=== PATIENT | female | born 1995 ===

== ENCOUNTER 2024-03-12 11:19 | Emergency (ER) | payer OTHER, SELFPAY ==
[2024-03-12 11:28] VITALS: BP 150/108; PULSE 58; RESP 20; TEMP 36.2; O2SAT 100
== END 2024-03-12 13:05 | disposition left against medical advice (07) ==
LOC: ANHED 12:59
PROVIDERS: Emergency Provider Emergency Medicine
DX: T22.00XA Burn of unspecified degree of shoulder and upper limb, except wrist and hand, unspecified site, initial encounter (principal)
CPT/HCPCS: 99199

== ENCOUNTER 2024-03-12 13:10 | Emergency (ER) | payer OTHER, SELFPAY ==
[2024-03-12 13:14] VITALS: BP 167/101; PULSE 64; RESP 14; TEMP 36.3; O2SAT 100
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
[2024-03-12 16:05] VITALS: BP 148/91; PULSE 66; RESP 18; TEMP 36.6; O2SAT 100
[2024-03-12] MEDS: TETANUS,DIPHTHERIA,AC PERTUSSIS ADULT (0.5 ML) BOOSTRIX IM (16:05)
[2024-03-12] MEDS: SILVER SULFADIAZINE 1% CR 50 GM JAR (*BKC) 1 APPLIC TOPICAL (16:06)
== END 2024-03-12 16:08 | disposition home or self-care (01) ==
LOC: ANHED 14:14
PROVIDERS: Emergency Provider Physician Assistant
DX: T22.111A Burn of first degree of right forearm, initial encounter (principal); T31.0 Burns involving less than 10% of body surface; Z23 Encounter for immunization; X19.XXXA Contact with other heat and hot substances, initial encounter; Y93.G1 Activity, food preparation and clean up
CPT/HCPCS: 16000; 90471; 90715; 99283; A9270

== ENCOUNTER 2024-06-01 13:29 | Emergency (ER) | payer OTHER, SELFPAY ==
--- OUTSIDE RECORDS SUMMARY | 2024-06-01 13:31 | XMS_ITS | Encounter Summary ---
Author Organization [facility] - [facility] Address [address] [place] [address] [place] [address] Care Team Providers Care Project Coach Name Role Phone None, Provider MD Primary Care Provider Unavaila ble None, Provider Primary Care Provider Unavaila ble None, Provider Unavailable Unavailable Chandrakant Maciel MD Unavailable Encounter Details Date Type Department Care Team (Late st Contact Info) Description 03/20/2019 Hospital Follow-up Call [facility] [place] [address] January Rodriges, RN Social History Tobacco Use Types Packs/Day Years Used Date Smoking Tobacco: Every Day Cigarettes 0.3 2 Smokeless Tobacco: Never Alcohol Use Standard Drinks/Week Comments No 0 (1 standard drink = 0.6 oz pur e alcohol) Humiliation, Afraid, Rape, and Kick questionnair e Answer Date Recorded Fear of Current or Ex-Partner No Emotionally Abused No 03/18/2019 Physically Abused No 03/18/2019 Sexually Abused No 03/18/2019 AUDIT-C Answer Date Recorded Frequency of Alcohol Consumption Never 03/17/2019 Average Number of Drinks Not on file 019 Frequency of Binge Drinking Not on file 02/28 Comments No Sex and Gender Information Value Date Recorded Sex Assigned at Female 09/15/2020 3:27 PM CDT Legal Sex Female 8:22 PM CDT Gender Identity Female 09/15/2020 3:27 PM CDT Sexual Orientation Straight 09/15/2020 3: 27 PM CDT documented as of this encounter Functional Status * RETIRED Are you deaf or do you have serious difficulty hearing Answer Date of Assessment Author Status No 03/18/2019 4:31 PM PERSONAL DRIVER Activ e * RETIRED Are you blind or do you have serious difficulty seeing, even when wearing glasses? Answer Date of Assessment Author Status No 03/18/2019 4:31 PM PERSONAL DRIVER Activ e * Do you have serious difficulty walking or climbing stairs? Answer Date of Assessment Author Status No 03/18/2019 4:31 PM PERSONAL DRIVER Norma Haney, R Korin Active * Do you have difficulty dressing or bathing? Answer Date of Assessment Author Status No 03/18/2019 4:31 PM PERSONAL DRIVER Norma Haney, R Korin Active * Because of a physical, mental, or emotional condition, do you have difficulty doing errands alone such as visiting a doctor's office or shopping? Answer Date of Assessment Author Status No 03/18/2019 4:31 PM PERSONAL DRIVER Norma Haney, R N Active documented as of this encounter Mental Status * Because of a physical, mental, or emotional condition, do you have serious difficulty concentrating, remembering, or making decisions? Answer Entry Date Author Status No 03/18/2019 4:31 PM PERSONAL DRIVER Norma Haney, R N Active documented in this encounter Plan of Treatment Not on file documented as of this encounter Visit Diagnoses Not on filedocumented in this encounter Additional Health Concerns Infection Onset Date Last Indicated Resolved Time COVID-19 Rule Out 11/28/2020 11/28/2020 11/29/2020 10:55 PM CDT COVID-19 Confirmed 11/28/2020 11/28/2020 12:32 AM CDT documented as of this encounter Care Teams Project Coach Relationship Specialty Start Date End Date None, ProviderMD PCP - General 03/17/19 01/18/21 None, ProviderMD PCP - General 01/19/21 None, MD Wilner 01/19/21 Chandrakant Maciel MD [address] [place] [address] OBGYN 03/18/17 documented as of this encounter
--- OUTSIDE RECORDS SUMMARY | 2024-06-01 13:31 | XMS_ITS | Clinical Summary ---
Author Organization [facility] Address [facility] [facility] [address] [place] [address] Care Team Providers Care Branch Service Representative Name Role Phone None, Provider MD Primary Care Provider Unavaila ble None, Provider MD Unavailable Unavailable Chandrakant Maciel MD Unavailable Allergies No known active allergies Medications No known medications Active Problems Problem Noted Date Diagnosed Date Intentional acetaminophen overdose ([facility]) 09/15/2020 Intentional overdose of drug in tablet form ([facility]) 09/15/2020 Pre-eclampsia in period ([facility]) Upper GI bleed 03/17/2019 Class 2 obesity due to exces s calories with body mass index (BMI) of 36.0 to 36.9 in adult 01/08/2019 Twin , twins discordant, antepartum ([facility]) 01/08/2019 Overview (09/15/2020): Noted on outside scan Chlamydia infection affectin g in first trimester ([facility]) 07/29/2018 Overview (09/15/2020): abx sent to pt pharmacy 07/29/18, need LEN in 6 weeks Dichorionic diamniotic twin ([facility]) 07/29/2018 Overview (09/15/2020): [x] FOB name: Mother: Farida First Trimester: [] Dating Criteria: [x] Labs:O+/I/-/-. HIV NR [x] Genetic Screening: Panorama LR, Dizygotic fraternal twins, female/male, pt notified 2nd Trimester: [x] Anatomy ultrasound 3rd Trimester: [x] CBC, HIV, syphilis screen [x] 1hr GCT (26-28wks): [] Tdap (27-36wks) [] Rhogam (if Rh neg): [] GBS: Counseling: [] Method of delivery: [] Method of contraception: undecided [] Method of feeding: undecided Burgess's palsy Family History Medical History Relation Comments Hypertension Father Liver Disease Maternal Grandmother Lupus Mother Relation Status Comments Father Maternal Grandmother Mother Social History Tobacco Use Types Packs/Day Years Used Date Smoking Tobacco: Every Day Cigarettes 0.5 2 Smokeless Tobacco: Never Tobacco Cessation:Ready to Q uit: No; Counseling Given: Yes Alcohol Use Standard Drinks/Week Comments Not Currently 0 (1 standard drink = 0.6 oz [...] Orientation Straight 09/15/2020 3: 27 PM CDT Last Filed Vital Signs Vital Sign Reading Time Taken Comments Blood Pressure 136/79 01/19/2021 1:18 PM CDT Pulse 57 01/19/2021 1:18 PM CDT Temperature 36.6 ??C (97.8 ??F) 01/19/2021 1 0:47 AM CDT Respiratory Rate 18 01/19/2021 1:18 PM CDT Oxygen Saturation 100% 01/19/2021 1:18 PM CDT Inhaled Oxygen Concentration - - Weight 94.8 kg (208 lb 15.9 oz) 021 10:47 AM CDT Height 162.6 cm (5' 4 ) 01/19/2021 10:4 7 AM CDT Body Mass Index 35.87 01/19/2021 10:47 AM CDT Plan of Treatment Health Maintenance Due Date Last Done Comments Cervical Cancer Screening Pap Smear (Age 30 to 64) Every 3 Years 1993 Annual Physical 1996 Pneumococcal Vaccine: Pediatrics (0 to 5 Years) and At-Risk Patients (6 to 64 Years) (1 of 2 - PCV) 1999 Hepatitis C 2011 Hepatitis B Vaccines (1 of 3 - 19+ 3-dose series) 2012 Cervical Cancer Screening Pap with HPV Testing (Age 30 to 64) Every 5 Years 2023 Cervical Cancer Screening with HPV 2023 COVID-19 Vaccine ( season) 2023 Influenza Adult (#1) 2024 DTaP, Tdap and Td Vaccines (4 - Td or Tdap) 01/10/2029 01/10/2019, 12/08/1998, 03/20/1996, Additional history exists HPV Vaccines Aged Out No longer eligi ble based on patient's age to complete this topic Meningococcal B Vaccine Aged Out No l onger eligible based on patient's age to complete this topic Meningococcal Vaccine Aged Out No ladan luisito eligible based on patient's age to complete this topic RSV Immunizations Under 20 Months Aged Out No longer eligible based on patient's age to complete this topic Insurance AETNA AETNA MED[employer]MENTS OF [facility] Advance Directives * Full Code (Latest Code Status on File) Date Activated Date Inactivated Comments 09/15/2020 10:37 PM 09/16/2020 2:40 PM * Full Code Date Activated Date Inactivated Comments 03/17/2019 11:20 PM 03/19/2019 5:11 PM Care Teams Branch Service Representative Relationship Specialty Start Date End Date None, Provider, PCP - General 01/19/21 None, ProviderMD 01/19/21 Chandrakant Maciel MD [address] [address] OBGYN 03/18/17
[2024-06-01 13:40] VITALS: BP 138/81; PULSE 74; RESP 17; TEMP 36.7; O2SAT 100
--- NOTE | 2024-06-01 14:30 | PC.NURSE ---
pt told this RN she had to go back to work and would like a call when it was her turn. this RN told pt that is not how it works and if her name was called and she was not here then her name would get skipped over and we are not eligible to give her a call. pt was not happy about this saying she works here and would like a phone call. This RN informed her again that we do not call when a room becomes available. pt stormed off and said this hospital is terrible and left
--- OUTSIDE RECORDS SUMMARY | 2024-06-01 14:41 | XMS_ITS | Clinical Summary ---
Author Organization [facility] Address [facility] [facility] [place] [address] [place] [address] Care Team Providers Care Insecticide Expert Name Role Phone None, Provider MD Primary Care Provider Unavaila ble None, Provider MD Unavailable Unavailable Chandrakant Maciel MD Unavailable Allergies No known active allergies Medications No known medications Active Problems Problem Noted Date Diagnosed Date Intentional acetaminophen overdose ([facility]) 09/15/2020 Intentional overdose of drug in tablet form ([facility]) 09/15/2020 Pre-eclampsia in period ([facility]) Upper GI bleed 03/17/2019 Class 2 obesity due to exces s calories with body mass index (BMI) of 36.0 to 36.9 in adult 01/08/2019 Twin , twins discordant, antepartum ([facility]) 01/08/2019 Overview (09/15/2020): Noted on outside scan Chlamydia infection affectin g in first trimester ([facility]) 07/29/2018 Overview (09/15/2020): abx sent to pt pharmacy 07/29/18, need LEN in 6 weeks Dichorionic diamniotic twin ([facility]) 07/29/2018 Overview (09/15/2020): [x] FOB name: [...] topic Insurance AETNA AETNA [facility]MENTS OF [facility] Advance Directives * Full Code (Latest Code Status on File) Date Activated Date Inactivated Comments 09/15/2020 10:37 PM 09/16/2020 2:40 PM * Full Code Date Activated Date Inactivated Comments 03/17/2019 11:20 PM 03/19/2019 5:11 PM Care Teams Insecticide Expert Relationship Specialty Start Date End Date None, Provider, PCP - General 01/19/21 None, ProviderMD 01/19/21 Chandrakant Maciel MD [address] [place] [address] OBGYN 03/18/17
--- OUTSIDE RECORDS SUMMARY | 2024-06-01 14:41 | XMS_ITS | Encounter Summary ---
Author Organization [facility] - [facility] Address [address] [place] [address] [place] [address] Care Team Providers Care Thread Puller Name Role Phone None, Provider MD Primary Care Provider Unavaila ble None, Provider Primary Care Provider Unavaila ble None, Provider Unavailable Unavailable Chandrakant Maciel MD Unavailable Encounter Details Date Type Department Care Team (Late st Contact Info) Description 03/20/2019 Hospital Follow-up Call [facility] [place] [address] January Rodriges, RN Social History [...] Assessment Author Status No 03/18/2019 4:31 PM ICE HOUSE SUPERVISOR Activ e * RETIRED Are you blind or do you have serious difficulty seeing, even when wearing glasses? Answer Date of Assessment Author Status No 03/18/2019 4:31 PM ICE HOUSE SUPERVISOR Activ e * Do you have serious difficulty walking or climbing stairs? Answer Date of Assessment Author Status No 03/18/2019 4:31 PM ICE HOUSE SUPERVISOR Norma Haney, R Korin Active * Do you have difficulty dressing or bathing? Answer Date of Assessment Author Status No 03/18/2019 4:31 PM ICE HOUSE SUPERVISOR Norma Haney, R Korin Active * Because of a physical, mental, or emotional condition, do you have difficulty doing errands alone such as visiting a doctor's office or shopping? Answer Date of Assessment Author Status No 03/18/2019 4:31 PM ICE HOUSE SUPERVISOR Norma Haney, R N Active documented as of this encounter Mental Status * Because of a physical, mental, or emotional condition, do you have serious difficulty concentrating, remembering, or making decisions? Answer Entry Date Author Status No 03/18/2019 4:31 PM ICE HOUSE SUPERVISOR Norma Haney, R N Active documented in this encounter Plan of Treatment Not on file documented as of this encounter Visit Diagnoses Not on filedocumented in this encounter Additional Health Concerns Infection Onset Date Last Indicated Resolved Time COVID-19 Rule Out 11/28/2020 11/28/2020 11/29/2020 10:55 PM CDT COVID-19 Confirmed 11/28/2020 11/28/2020 12:32 AM CDT documented as of this encounter Care Teams Thread Puller Relationship Specialty Start Date End Date None, ProviderMD PCP - General 03/17/19 01/18/21 None, ProviderMD PCP - General 01/19/21 None, MD Wilner 01/19/21 Chandrakant Maciel MD [address] [place] [address] OBGYN 03/18/17 documented as of this encounter
== END 2024-06-01 14:47 | disposition left against medical advice (07) ==
DX: O26.891 Other specified pregnancy related conditions, first trimester (principal); R10.30 Lower abdominal pain, unspecified
CPT/HCPCS: 99199